=== PATIENT | female | born 1945 | race Caucasian/White ===

== ENCOUNTER 2024-04-17 04:22 | Emergency (ER) | payer BC, OTHER ==
[~2024-04-17] VITALS: Ht 170.2 cm; Wt 61.2 kg
--- NOTE | 2024-04-17 04:36 | NUR ---
BIBRA FROM HOME C/O TRIP & GLF FROM TOILET. L SHOULDER PAIN. -KO ON SCENE BP 81/41 HR 49, EMS ADMINISTERED IVF
[2024-04-17] MEDS ORDERED: IBUPROFEN 400 MG TABLET ONE (04:47)
[2024-04-17] MEDS: IBUPROFEN 400 MG TABLET PO ONE (04:48)
--- NOTE | 2024-04-17 04:50 | NUR ---
XRAY AT PT'S BEDSIDE
--- NOTE | 2024-04-17 07:15 | NUR ---
RECEived pt FROM [facility] PT AWAKE AND ALERT RESTING AND COMFORTABLE
--- NOTE | 2024-04-17 08:00 | NUR ---
WATING FOR X RAY RESULT
[2024-04-17 08:53] VITALS: BP 110/71; TEMP 98.1; O2SAT 99
--- NOTE | 2024-04-17 08:53 | NUR ---
IV removed. Catheter intact and site benign. Pressure and 4x4 applied to site. No bleeding noted.
--- NOTE | 2024-04-17 08:53 | NUR ---
Patient discharged to home in stable condition. Written and verbal after care instructions given. Patient verbalizes understanding of instruction.
== END 2024-04-17 08:53 | disposition home or self-care (01) ==
LOC: ER 04:29
DX: S40.012A Contusion of left shoulder, initial encounter (principal); Z88.8 Allergy status to other drugs, medicaments and biological substances; W01.0XXA Fall on same level from slipping, tripping and stumbling without subsequent striking against object, initial encounter; Y93.89 Activity, other specified; Y92.098 Other place in other non-institutional residence as the place of occurrence of the external cause; Y99.8 Other external cause status
CPT/HCPCS: 73030-TC